=== PATIENT | female | born 1965 | race Asian ===

== ENCOUNTER 2020-05-06 16:58 | Emergency (ER) | payer OTHER ==
[~2020-05-06] VITALS: Ht 167.6 cm; Wt 65.8 kg
[2020-05-06 17:01] VITALS: BP 129/70; TEMP 97.8
[2020-05-06 17:20] LABS: PLATELET COUNT 188 K/uL (152-353)
[2020-05-06] MEDS ORDERED: AMLODIPINE BESYLATE PO (20:36)
[2020-05-06] MEDS ORDERED: DESCOVY 200-251 TAB PO (20:38)
[2020-05-06] MEDS ORDERED: TIVICAY50 MG PO (20:39)
[2020-05-06] MEDS ORDERED: BENZ1TAB43 PO (20:40)
[2020-05-06] MEDS ORDERED: CHLO50TA22 PO (20:42)
[2020-05-06] MEDS ORDERED: TRILEPTAL300 MG PO (20:43)
[2020-05-06] MEDS ORDERED: HALOPERIDOL20 MG PO (21:00)
[2020-05-06] MEDS ORDERED: LORA1TAB17 PO (21:00)
[2020-05-06] MEDS ORDERED: PROP40TA53 PO (21:03)
[2020-05-06] MEDS ORDERED: TRAZ50TA36 PO (21:07)
[2020-05-06] MEDS ORDERED: BENADRYL 50M50 MG/ML IM (21:10)
[2020-05-06] MEDS ORDERED: HALO5INJ3 IM (21:11)
[2020-05-06] MEDS ORDERED: PROPRANOLOL10 MG PO (21:23)
== END 2020-05-06 18:35 | disposition other institution (70) ==
LOC: ED 16:58
PROVIDERS: Family Medicine
DX: R46.89 Other symptoms and signs involving appearance and behavior (principal); Z11.59 Encounter for screening for other viral diseases; Z04.6 Encounter for general psychiatric examination, requested by authority; I10 Essential (primary) hypertension; F17.210 Nicotine dependence, cigarettes, uncomplicated
CPT/HCPCS: 80053; 85027; 87635; 93005; 99283; U0003

== ENCOUNTER 2020-05-23 18:11 | Emergency (ER) | payer OTHER ==
[~2020-05-23 18:11] MED LIST: ACET-206 PO; AMLODIPINE BESYLATE PO; BENADRYL 50M50 MG/ML IM; BENZ1TAB43 PO; CHLO50TA22 PO; CHOL100034 PO; CYAN10009 IM; DESCOVY 200-251 TAB PO; HALO5INJ3 IM; HALOPERIDOL20 MG PO; LORA1TAB17 PO; MAGNSUS68 PO; OXCARBAZEPIN300 MG PO; PROP40TA53 PO; PROPRANOLOL10 MG PO; RISP1TAB PO; TIVICAY50 MG PO; TRAZ50TA36 PO; TRILEPTAL300 MG PO
[2020-05-23 19:10] LABS: PLATELET COUNT 175 K/uL (152-353)
[2020-05-23 19:19] LABS: POTASSIUM 3.8 mmol/L (3.6-5.2)
[2020-05-23] MEDS ORDERED: LORA1TAB17 PO (23:12)
== END 2020-05-23 19:45 | disposition other institution (70) ==
LOC: ED 18:11
PROVIDERS: Family Medicine
DX: R46.89 Other symptoms and signs involving appearance and behavior (principal); F20.89 Other schizophrenia; Z11.59 Encounter for screening for other viral diseases; Z04.6 Encounter for general psychiatric examination, requested by authority
CPT/HCPCS: 80053; 85027; 87635; 93005; 99283; 99285; U0003

== ENCOUNTER → 2020-06-25 | Emergency (ER) | payer OTHER ==
[~2020-06-25] VITALS: Ht 167.6 cm; Wt 79.4 kg
[~2020-06-25] MED LIST changes: +BLOOMIS59 PO; +CLON1TAB18 PO; +CLOZ100T PO; +DIPH50IN IM; +DIVA250T PO; +HALO5TAB10 PO; +IPRAAER INH; +LEVE500T5 PO; +LORA2INJ21 IM; +LORA2INJ21 INJ; +ONDA4TAB3 PO; +RISP0.25 PO; +RISP50IN IM; +VALPROIC ACID10 ML PO; +ZIPR20IN IM
[2020-06-25 19:58] LABS: PLATELET COUNT 162 K/uL (152-353)
[2020-06-25 20:11] VITALS: BP 169/98; TEMP 98.1
[2020-06-25 21:02] LABS: POTASSIUM 4.5 mmol/L (3.6-5.2)
== END ==
LOC: ED 19:19
PROVIDERS: Hospitalist
DX: F25.0 Schizoaffective disorder, bipolar type (principal); Z11.59 Encounter for screening for other viral diseases; Z04.6 Encounter for general psychiatric examination, requested by authority
CPT/HCPCS: 36415; 80053; 85027; 87635; 93005; 96372; 99283; J1200; J1630; U0003

== ENCOUNTER 2020-07-17 04:58 | Inpatient (IN) | payer OTHER ==
[~2020-07-17] VITALS: Ht 157.5 cm; Wt 81.9 kg
[2020-07-17] VITALS (13 sets, daily range): BP systolic 107–167; BP diastolic 54–95; TEMP 97.4–98.7; Ht 157.5 cm; Wt 81.9 kg
[~2020-07-17 04:58] MED LIST changes: -BLOOMIS59 PO; -CLOZ100T PO; -DIPH50IN IM; -HALO5TAB10 PO; -IPRAAER INH; -LEVE500T5 PO; -LORA2INJ21 IM; -ONDA4TAB3 PO; -RISP0.25 PO; -VALPROIC ACID10 ML PO
[2020-07-17 06:24] LABS: POTASSIUM 3.5 mmol/L (3.6-5.2); SODIUM 134 mmol/L (136-145)
[2020-07-17 06:32] LABS: PLATELET COUNT 233 K/uL (152-353)
[2020-07-17 06:55] LABS: PARTIAL THROMBOPLASTIN TIME 24.5 SECONDS (24.5-33.6)
[2020-07-17] MEDS ORDERED: VALPROIC ACID10 ML PO (08:14)
[2020-07-17] MEDS ORDERED: TRAZ50TA36 PO (08:15)
[2020-07-17] MEDS ORDERED: RISP0.25 PO (08:15)
[2020-07-17] MEDS ORDERED: BLOOMIS59 PO ×2 (08:15→08:16)
[2020-07-17] MEDS ORDERED: LORA2INJ21 IM (08:16)
[2020-07-17] MEDS ORDERED: OXCARBAZEPIN300 MG PO (08:16)
[2020-07-17] MEDS ORDERED: HALO5INJ3 IM (08:16)
[2020-07-17] MEDS ORDERED: ONDA4TAB3 PO (08:16)
[2020-07-17] MEDS ORDERED: HALO5TAB10 PO (08:16)
[2020-07-17] MEDS ORDERED: CLOZ100T PO ×2 (08:17)
[2020-07-17] MEDS ORDERED: DIPH50IN IM (08:17)
[2020-07-17] MEDS ORDERED: PROPRANOLOL10 MG PO (08:19)
[2020-07-17] MEDS ORDERED: ZIPR20IN IM (23:07)
[2020-07-18 00:07] VITALS: BP 143/93; TEMP 97.3
--- NOTE | 2020-07-18 03:11 | NUR ---
07/17/20 AT 2030 PATIENT RESTING QUIETLY AT THIS TIME WITH HER EYES CLOSED. PATIENT OCCASIONALLY YELLS OUT, NO DISTRESS NOTED AT THIS TIME, PCT FROM U AT BEDSIDE.
--- NOTE | 2020-07-18 03:12 | NUR ---
07/18/20 AT 0300 PATIENT REQUESTING TO "GO TO BATHROOM". [id number] AND MYSELF ASSISTED PATIENT TO BATHROOM, PATIENT WAS UNABLE TO MAKE IT INTO BATHROOM AND URINATED ON THE FLOOR. LINENS CHANGED AND NEW BRIEF PUT ON PATIENT AND ASSISTED BACK TO BED. PATIENT DENIES ANY COMPLAINTS AT THIS TIME AND NO DISTRESS NOTED AT THIS TIME. WHEN I ASKED PATIENT IF SHE FEELS BETTER SHE STATES "YEAH". [employer] REMAINS AT BEDSIDE WITH CALL LIGHT WITHIN REACH. WILL CONTINUE TO MONITOR.
[2020-07-18 04:03] VITALS: BP 131/89; TEMP 98.1
[2020-07-18 04:24] LABS: POTASSIUM 4.1 mmol/L (3.6-5.2)
[2020-07-18 08:00] VITALS: BP 143/77; TEMP 98.2
[2020-07-18 08:09] LABS: PLATELET COUNT 238 K/uL (152-353)
[2020-07-18] MEDS ORDERED: LEVE500T5 PO (10:47)
--- NOTE | 2020-07-18 11:16 | NUR ---
07/18/2020 1015 HOSP IN TO SPEAK WITH PATIENT ON PLAN OF DISCHARGE.SITTER PRESENT IN ROOM.CC
--- NOTE | 2020-07-18 13:40 | NUR ---
07/18/20 1320 DISCHARGE INSTRUCTIONS GIVEN TO [facility] NURSE TARA JOHNSON RN.PT TOOK OVER TO [facility] VIA WHEELCAHIR ALONG WITH SITTER FROM [facility].SALINE LOCK REMOVED APPLIED 2X2 SECURED WITH TAPE.ALSO REMOVED TELE BOX RETURNED TO DESK.
[2020-07-18] MEDS ORDERED: CHOL100034 PO (15:18)
[2020-07-18] MEDS ORDERED: IPRAAER INH (15:22)
== END 2020-07-18 13:45 | disposition other institution (70) | DRG 101 ==
LOC: ED 04:58 → MED/SURG 07:00
PROVIDERS: ADMIT Hospitalist; ATTEND Internal Medicine Endocrinology, Diabetes & Metabolism
DX: G40.803 Other epilepsy, intractable, with status epilepticus (principal); B20 Human immunodeficiency virus [HIV] disease; F20.89 Other schizophrenia; F02.81 Dementia in other diseases classified elsewhere, unspecified severity, with behavioral disturbance; D72.818 Other decreased white blood cell count; D63.8 Anemia in other chronic diseases classified elsewhere; E87.6 Hypokalemia; E11.9 Type 2 diabetes mellitus without complications; K21.9 Gastro-esophageal reflux disease without esophagitis
CPT/HCPCS: 36415; 36600; 80053; 80164; 80307; 80320; 81000; 82550; 82553; 82805; 82962; 83605; 83880; 84484; 85027; 85610; 85730; 87040; 87635; 93005; 94760; 96361; 96365; 96375; 96376; 99284; J0696; J1165; J1650; J1953; J2060; J2270; J2405; J3360; U0003

== ENCOUNTER 2020-12-19 22:07 | Emergency (ER) | payer OTHER ==
[~2020-12-19] VITALS: Ht 167.6 cm; Wt 81.2 kg
[2020-12-19 22:07] VITALS: BP 145/59; TEMP 98.4
[~2020-12-19 22:07] MED LIST changes: +BLOOMIS59 PO; +CLOZ100T PO; +DIPH50IN IM; +HALO5TAB10 PO; +IPRAAER INH; +LEVE500T5 PO; +LORA2INJ21 IM; +ONDA4TAB3 PO; +RISP0.25 PO; +VALPROIC ACID10 ML PO
[2020-12-19 23:10] LABS: PLATELET COUNT 227 K/uL (152-353)
[2020-12-23] MEDS ORDERED: BENZ1TAB43 PO (14:02)
[2020-12-23] MEDS ORDERED: DIVA250T PO (14:04)
[2020-12-23] MEDS ORDERED: HALO10TA5 PO (14:05)
[2020-12-23] MEDS ORDERED: MEDR150I3 IM (14:14)
[2020-12-23] MEDS ORDERED: TRILEPTAL300 MG PO (14:16)
[2020-12-23] MEDS ORDERED: PAXIL20 MG PO (14:17)
[2020-12-23] MEDS ORDERED: RISP0.5T2 PO (14:18)
[2020-12-23] MEDS ORDERED: TRAZ100T PO (14:19)
[2020-12-23] MEDS ORDERED: CYAN10009 IM (14:23)
[2020-12-23] MEDS ORDERED: RISP50IN IM (14:24)
== END 2020-12-20 00:25 | disposition other institution (70) ==
LOC: ED 22:12
PROVIDERS: Family Medicine
DX: F25.8 Other schizoaffective disorders (principal); R46.89 Other symptoms and signs involving appearance and behavior; Z11.52 Encounter for screening for COVID-19; Z04.6 Encounter for general psychiatric examination, requested by authority
CPT/HCPCS: 36415; 80053; 85027; 87635; 93005; 99283; U0003

== ENCOUNTER 2021-08-24 15:45 | Emergency (ER) | payer OTHER ==
[~2021-08-24] VITALS: Ht 162.6 cm; Wt 73.0 kg
[~2021-08-24 15:45] MED LIST changes: +ARIPIPRAZOLE15 MG PO; +B-12 COMPL1000 MCG/M INJ; +DIVA250T2 PO; +DIVA500T2 PO; +DIVALPROEX250 M1 PO; +DIVALPROEX500 M1 PO; +HALO10TA5 PO; +IPRAT-ALBUT INH; +MAGN400T4 PO; +MEDR150I3 IM; +MEDROXYPROG150 MG/ML IM; +OXCARBAZEPIN600 MG PO; +PARO20TA3 PO; +PAXIL20 MG PO; +RISP0.5T2 PO; +SOD CHLORIDE1 GM PO; +TRAZ100T PO; +TYLENOL325 MG PO
[2021-08-24 16:36] LABS: PLATELET COUNT 223 K/uL (152-353)
[2021-08-24 16:49] LABS: POTASSIUM 4.1 mmol/L (3.6-5.2)
[2021-08-24 17:22] VITALS: BP 131/60; TEMP 97.5
[2021-08-25] MEDS ORDERED: VALPROIC A250 MG/5 M PO (09:12)
[2021-08-25] MEDS ORDERED: HALO10TA5 PO (09:13)
[2021-08-25] MEDS ORDERED: QUET100T2 PO (09:15)
[2021-08-25] MEDS ORDERED: HYDROXYZINE HYD25 MG PO (09:17)
[2021-08-25] MEDS ORDERED: DIPH50IN IM (09:18)
[2021-08-25] MEDS ORDERED: HALO5INJ3 IM (09:28)
== END 2021-08-24 17:22 | disposition still patient (30) ==
LOC: ED 15:50
PROVIDERS: Emergency Medicine Emergency Medical Services
DX: F03.91 Unspecified dementia, unspecified severity, with behavioral disturbance (principal); Z11.52 Encounter for screening for COVID-19; Z04.6 Encounter for general psychiatric examination, requested by authority
CPT/HCPCS: 80053; 85027; 87635; 93005; 99283; U0003

== ENCOUNTER 2021-10-09 18:11 | Emergency (ER) | payer OTHER ==
[~2021-10-09] VITALS: Ht 162.6 cm; Wt 69.4 kg
[~2021-10-09 18:11] MED LIST changes: +ALBUSOL INH; +DIVALPROEX250 MG PO; +FOLI1TAB26 PO; +HYDROXYZINE HYD25 MG PO; -IPRAT-ALBUT INH; +QUET100T2 PO; +VALPROIC A250 MG/5 M PO
[2021-10-09 18:24] VITALS: BP 172/71; TEMP 97.5
[2021-10-09 19:13] LABS: PLATELET COUNT 188 K/uL (152-353)
[2021-10-09 19:16] LABS: POTASSIUM 4.5 mmol/L (3.6-5.2)
[2021-10-09] MEDS ORDERED: DIVA250T PO (21:38)
[2021-10-09] MEDS ORDERED: DIVALPROEX250 MG PO (21:41)
[2021-10-09] MEDS ORDERED: XALATAN0.005 % OPTH (21:44)
[2021-10-09] MEDS ORDERED: OXCARBAZEPIN300 MG PO ×2 (22:21→22:47)
[2021-10-09] MEDS ORDERED: ZIPR20IN IM (22:31)
[2021-10-09] MEDS ORDERED: QUETIAPINE200 MG PO (22:47)
== END 2021-10-09 19:34 | disposition still patient (30) ==
LOC: ED 18:19
PROVIDERS: Emergency Medicine
DX: F03.91 Unspecified dementia, unspecified severity, with behavioral disturbance (principal); Z11.52 Encounter for screening for COVID-19; Z04.6 Encounter for general psychiatric examination, requested by authority
CPT/HCPCS: 36415; 80053; 81000; 85027; 87635; 93005; 99283; U0003

== ENCOUNTER 2021-11-09 21:00 | Emergency (ER) | payer OTHER ==
[~2021-11-09] VITALS: Ht 162.6 cm; Wt 70.3 kg
[~2021-11-09 21:00] MED LIST changes: +INDERAL 10MG TAB PO; +LATA0.00 OPTH; +QUETIAPINE200 MG PO; +XALATAN0.005 % OPTH
[2021-11-09 21:05] VITALS: BP 177/77; TEMP 98.7
[2021-11-09 21:32] LABS: PLATELET COUNT 181 K/uL (152-353)
[2021-11-09 21:41] LABS: POTASSIUM 3.5 mmol/L (3.6-5.2)
[2021-11-10] MEDS ORDERED: HALO50IN4 IM (03:17)
[2021-11-10] MEDS ORDERED: XELPROS0.005 % OPTH (03:19)
[2021-11-10] MEDS ORDERED: HALO5TAB10 PO ×2 (03:23→23:13)
[2021-11-10] MEDS ORDERED: TYLENOL325 MG PO (03:36)
[2021-11-10] MEDS ORDERED: OLAN10INJ IM (03:38)
[2021-11-10] MEDS ORDERED: OLANZAPINE5 M1 PO ×2 (11:06→11:07)
[2021-11-10] MEDS ORDERED: DEPAKOTE DR PO ×3 (22:00→23:05)
[2021-11-10] MEDS ORDERED: DIVA250T PO (23:02)
[2021-11-10] MEDS ORDERED: OXCARBAZEPIN300 MG PO (23:06)
[2021-11-10] MEDS ORDERED: ZYPREXA ZYDI5 MG PO (23:10)
== END 2021-11-09 22:20 | disposition still patient (30) ==
LOC: ED 21:00
PROVIDERS: Emergency Medicine Emergency Medical Services
DX: R46.89 Other symptoms and signs involving appearance and behavior (principal); F20.89 Other schizophrenia; Z11.52 Encounter for screening for COVID-19; Z04.6 Encounter for general psychiatric examination, requested by authority
CPT/HCPCS: 36415; 80053; 85027; 87635; 93005; 99283; U0003

== ENCOUNTER 2022-02-11 15:57 | Emergency (ER) | payer OTHER ==
[~2022-02-11] VITALS: Ht 162.6 cm; Wt 68.0 kg
[~2022-02-11 15:57] MED LIST changes: +DEPAKOTE DR PO; +DIVALPROEX500 MG PO; +HALO50IN4 IM; +METO-837 PO; +OLAN10INJ IM; +OLAN2.5T2 PO; +OLANZAPINE5 M1 PO; +XELPROS0.005 % OPTH; +ZYPREXA ZYDI5 MG PO
[2022-02-11 16:04] VITALS: BP 160/90; TEMP 97.2
[2022-02-11 16:19] LABS: PLATELET COUNT 247 K/uL (152-353)
[2022-02-11 16:30] LABS: POTASSIUM 3.7 mmol/L (3.6-5.2)
[2022-02-11] MEDS ORDERED: VITAMIN DE1000 MCG/M IM (18:22)
[2022-02-11] MEDS ORDERED: TIVICAY50 MG PO (18:24)
[2022-02-11] MEDS ORDERED: DESCOVY 200-251 TAB PO (18:26)
[2022-02-11] MEDS ORDERED: KP FOLIC ACID1 MG PO (18:27)
[2022-02-11] MEDS ORDERED: HALO50IN4 IM ×2 (18:28→18:29)
[2022-02-11] MEDS ORDERED: LATA0.00 OPTH (18:34)
[2022-02-11] MEDS ORDERED: MEDROXYPROG150 MG/ML IM (18:35)
[2022-02-11] MEDS ORDERED: TRILEPTAL300 MG PO ×2 (18:37→18:41)
[2022-02-11] MEDS ORDERED: LEVE500T5 PO (18:40)
[2022-02-11] MEDS ORDERED: MAGN400T4 PO (18:41)
[2022-02-11] MEDS ORDERED: SOD CHLORIDE1 GM PO (18:44)
[2022-02-11] MEDS ORDERED: DIVALPROEX500 M1 PO (18:46)
[2022-02-11] MEDS ORDERED: PROPRANOLOL HYD10 MG PO (18:47)
[2022-02-11] MEDS ORDERED: TYLENOL325 MG PO (18:47)
[2022-02-11] MEDS ORDERED: FLUC150T PO (18:49)
[2022-02-11] MEDS ORDERED: DIPH50IN INJ (18:51)
== END 2022-02-11 17:50 | disposition other institution (70) ==
LOC: ED 15:57
PROVIDERS: Family Medicine
DX: R45.1 Restlessness and agitation (principal); F20.89 Other schizophrenia; E87.1 Hypo-osmolality and hyponatremia; Z11.52 Encounter for screening for COVID-19; Z04.6 Encounter for general psychiatric examination, requested by authority
CPT/HCPCS: 80053; 85027; 87635; 99283; U0003

== ENCOUNTER 2022-03-11 17:28 | Emergency (ER) | payer OTHER ==
[~2022-03-11] VITALS: Ht 160 cm; Wt 70.8 kg
[~2022-03-11 17:28] MED LIST changes: +DIPH50IN INJ; +FLUC150T PO; +KP FOLIC ACID1 MG PO; +OLAN10INJ INJ; +OLANZAPINE10 MG PO; +PROPRANOLOL HYD10 MG PO; +VITAMIN B-121000 MCG PO; +VITAMIN DE1000 MCG/M IM
[2022-03-11 17:51] LABS: PLATELET COUNT 225 K/uL (152-353)
[2022-03-11 17:57] LABS: POTASSIUM 3.8 mmol/L (3.6-5.2)
[2022-03-11 19:30] VITALS: BP 120/70; TEMP 98.8
[2022-03-11] MEDS ORDERED: DESCOVY 200-251 TAB PO (21:34)
[2022-03-11] MEDS ORDERED: B-121000 MC5 PO (21:35)
[2022-03-11] MEDS ORDERED: DIVALPROEX250 M1 PO (21:36)
[2022-03-11] MEDS ORDERED: OLANZAPINE10 MG PO (21:43)
[2022-03-11] MEDS ORDERED: LORA1TAB17 PO (21:44)
[2022-03-11] MEDS ORDERED: PROPRANOLOL HYD10 MG PO (21:45)
[2022-03-11] MEDS ORDERED: LORA2INJ21 IM (21:47)
[2022-03-11] MEDS ORDERED: MAGNSUS68 PO (21:48)
[2022-03-11] MEDS ORDERED: ZIPR20IN IM (21:49)
== END 2022-03-11 19:30 | disposition still patient (30) ==
LOC: ED 17:28
PROVIDERS: Emergency Medicine
DX: F20.89 Other schizophrenia (principal); R45.1 Restlessness and agitation; B20 Human immunodeficiency virus [HIV] disease; B19.20 Unspecified viral hepatitis C without hepatic coma; I10 Essential (primary) hypertension; Z11.52 Encounter for screening for COVID-19; Z04.6 Encounter for general psychiatric examination, requested by authority
CPT/HCPCS: 80053; 85027; 87635; 93005; 99283; U0003

== ENCOUNTER 2022-08-02 15:50 | Emergency (ER) | payer OTHER ==
[~2022-08-02] VITALS: Ht 162.6 cm; Wt 76.2 kg
[~2022-08-02 15:50] MED LIST changes: +B-121000 MC5 PO; +HALO1TAB3 PO; +LORA0.5T17 PO
[2022-08-02 16:42] LABS: PLATELET COUNT 270 K/uL (152-353)
[2022-08-02 16:45] LABS: POTASSIUM 3.9 mmol/L (3.6-5.2)
[2022-08-02 17:15] VITALS: BP 159/48; TEMP 98.7
[2022-08-02] MEDS ORDERED: LORA1TAB17 PO (19:33)
[2022-08-02] MEDS ORDERED: [UNRECOGNIZED DRUG - REMARK] (21:16)
[2022-08-03] MEDS ORDERED: HALOPERIDOL INJ (09:49)
[2022-08-03] MEDS ORDERED: RISP50IN IM (10:01)
[2022-08-03] MEDS ORDERED: CLON1TAB18 PO (10:04)
[2022-08-03] MEDS ORDERED: DIVA500T2 PO (10:05)
[2022-08-03] MEDS ORDERED: FAMO20TA4 PO (10:06)
[2022-08-03] MEDS ORDERED: ZIPR20CA PO (10:08)
[2022-08-03] MEDS ORDERED: HYDR25CA25 PO (10:09)
[2022-08-03] MEDS ORDERED: ZYPREXA ZYDI10 MG PO (10:15)
[2022-08-03] MEDS ORDERED: TRILEPTAL300 MG PO (10:16)
== END 2022-08-02 17:15 | disposition still patient (30) ==
LOC: ED 15:50
PROVIDERS: Emergency Medicine Emergency Medical Services
DX: F03.911 Unspecified dementia, unspecified severity, with agitation (principal); Z11.52 Encounter for screening for COVID-19; Z04.6 Encounter for general psychiatric examination, requested by authority
CPT/HCPCS: 80053; 85027; 87635; 93005; 99283; U0003

== ENCOUNTER 2022-10-28 13:36 | Emergency (ER) | payer OTHER ==
[~2022-10-28] VITALS: Ht 162.6 cm; Wt 72.6 kg
[~2022-10-28 13:36] MED LIST changes: +CLON0.5T36 PO; +FAMO20TA4 PO; +FAMOTIDINE20 MG PO; +HALOPERIDOL INJ; +HYDR25CA25 PO; +OLANZAPINE5 MG PO; +ZIPR20CA PO; +ZYPREXA ZYDI10 MG PO; +[UNRECOGNIZED DRUG - REMARK]
[2022-10-28 14:08] LABS: PLATELET COUNT 147 K/uL (152-353)
[2022-10-28 14:14] LABS: POTASSIUM 4.2 mmol/L (3.6-5.2)
[2022-10-28 14:40] VITALS: BP 165/73; TEMP 97.2
[2022-10-28] MEDS ORDERED: RISP50IN IM (15:29)
[2022-10-28] MEDS ORDERED: VITAMIN D1000 UNI1 PO (15:33)
[2022-10-28] MEDS ORDERED: RISPERDAL3 MG PO (15:36)
[2022-10-28] MEDS ORDERED: CLON1TAB18 PO (15:37)
[2022-10-28] MEDS ORDERED: ZYPREXA ZYDI5 MG PO (15:43)
[2022-10-28] MEDS ORDERED: HALO5INJ3 PO (15:44)
[2022-10-28] MEDS ORDERED: LIPITOR20 MG PO (15:48)
== END 2022-10-28 14:40 | disposition still patient (30) ==
LOC: ED 13:36
PROVIDERS: Emergency Medicine
DX: F25.9 Schizoaffective disorder, unspecified (principal); R45.1 Restlessness and agitation; B20 Human immunodeficiency virus [HIV] disease; D64.9 Anemia, unspecified; E86.0 Dehydration; Z02.79 Encounter for issue of other medical certificate
CPT/HCPCS: 80053; 81002; 85027; 87635; 93005; 99283; U0003